=== PATIENT | female | born 1960 | race Caucasian/White ===

== ENCOUNTER 2023-12-17 10:03 | Emergency (ER) | payer MEDICARE, MEDICAID ==
[~2023-12-17] VITALS: Ht 180.3 cm; Wt 89.1 kg
[2023-12-17 11:42] LABS: BASOPHILS % (AUTO) 0.5 % (0-1); EOSINOPHILS # (AUTO) 0.1 X10'3 (0-0.9); EOSINOPHILS % (AUTO) 1.1 % (0-6); HEMATOCRIT 35.6 % (35.0-45.0); HEMOGLOBIN 11.6 g/dl (12.0-16.0); LYMPHOCYTES % (AUTO) 28.4 % (21-51); MEAN CORPUSCULAR HEMOGLOBIN 29.9 PG (27.0-31.0); MEAN CORPUSCULAR HGB CONC 32.5 g/dL (33.0-36.5); MEAN CORPUSCULAR VOLUME 92.2 FL (78-98); MEAN PLATELET VOLUME 7.5 FL (7.4-10.4); MONOCYTES # (AUTO) 0.3 X10'3 (0-0.9); NEUTROPHILS # (AUTO) 4.5 X10'3 (1.8-7.7); PLATELET COUNT 454 X10'3 (140-440); RED BLOOD COUNT 3.86 X10'6 (4.20-5.60); RED CELL DISTRIBUTION WIDTH 14.3 % (11.5-14.5); WHITE BLOOD COUNT 6.9 X10'3 (4.5-11.0)
[2023-12-17] MEDS: normal saline 1000ML IV soln IVB ONE (11:44)
[2023-12-17 11:50] LABS: ANION GAP 9 (8-16); BLOOD UREA NITROGEN 15 MG/DL (7-18); CHLORIDE 104 MMOL/L (99-107); GLUCOSE 188 MG/DL (70-104); POTASSIUM 3.8 MMOL/L (3.5-5.1); SODIUM 140 MMOL/L (135-145); TOTAL CARBON DIOXIDE 27.5 MMOL/L (24-32)
[2023-12-17 11:51] LABS: ALANINE AMINOTRANSFERASE 18 U/L (12-78); ALBUMIN 3.4 G/DL (3.4-5.0); ALBUMIN/GLOBULIN RATIO 0.9 (1.1-1.5); ALKALINE PHOSPHATASE 52 IU/L (46-116); ASPARTATE AMINO TRANSFERASE 15 U/L (10-37); BILIRUBIN,TOTAL 0.3 MG/DL (0.1-1.0); BUN/CREATININE RATIO 19.7 (10.0-20.0); CALCIUM 9.4 MG/DL (8.5-10.1); CREATININE 0.76 MG/DL (0.40-0.90); LIPASE 99 U/L (16-77); TOTAL PROTEIN 7.4 G/DL (6.4-8.2); eCRCL 87 ML/MIN; eGFR 77 ML/MIN
[2023-12-17] MEDS: mag hydrox/Alum hydrox/simeth 30ml oral suspension PO ONE (13:18)
[2023-12-17] MEDS: LIDOcaine 2% Viscous 15ml cup MM ONE (13:18)
[2023-12-17] MEDS: pantoprazole 40 MG vial IV ONE (13:19)
[2023-12-17] MEDS: ketorolac trometh 15mg/ml vial 15 MG/ML ML IM ONE (13:20)
[2023-12-17] MEDS ORDERED: OXYC-138 PO (13:49)
[2023-12-17] MEDS ORDERED: ONDA-243 PO (13:49)
[2023-12-17] MEDS: normal saline 1000ml 1,000 ML IV ONE (13:51)
[2023-12-17 14:27] LABS: BILIRUBIN,URINE NEGATIVE (Neg); CLARITY,URINE SLIGHTLY CLOUDY (Clear); COLOR,URINE YELLOW (Yellow); GLUCOSE, URINE NEGATIVE (Neg); KETONES,URINE NEGATIVE (Neg); LEUKOCYTE ESTERASE ,URINE NEGATIVE (Neg); NITRITES, URINE NEGATIVE (Neg); OCCULT BLOOD,URINE LARGE (Neg); PROTEIN,URINE TRACE mg/dl (Neg); UROBILINOGEN,URINE 0.2 E.U/dL (0.2-1.0)
[2023-12-17 14:29] LABS: UA COLLECTION TYPE CLN CATCH MIDSTREAM
[2023-12-17 14:37] LABS: BACTERIA,URINE FEW /HPF (Neg); FINE GRANULAR CAST 0-3 /LPF (NEGATIVE); HYALINE CASTS 0-3 /LPF (NEGATIVE); MUCUS STRANDS MANY /LPF (Neg); RBC,URINE 20-50 /HPF (0-2); SQUAMOUS EPITHELIAL CELL,UR FEW /LPF (FEW)
[2023-12-17 14:43] VITALS: BP 139/84; PULSE 62; RESP 17; TEMP 98.3; O2SAT 99
== END 2023-12-17 14:44 | disposition home or self-care (01) ==
LOC: ER 10:04
DX: K85.90 Acute pancreatitis without necrosis or infection, unspecified (principal); I10 Essential (primary) hypertension; E11.9 Type 2 diabetes mellitus without complications; E03.9 Hypothyroidism, unspecified; F17.210 Nicotine dependence, cigarettes, uncomplicated; F12.90 Cannabis use, unspecified, uncomplicated; Z88.0 Allergy status to penicillin; Z79.899 Other long term (current) drug therapy; Z90.710 Acquired absence of both cervix and uterus
CPT/HCPCS: 36415; 76700; 80053; 81001; 82948; 83690; 85025; 87088; 96361; 96372; 96374; 99285; J1885; J2470; J7030

== ENCOUNTER 2024-01-18 14:46 | Inpatient (IN) | payer MEDICARE, MEDICAID ==
[~2024-01-18] VITALS: Ht 180.3 cm; Wt 89.6 kg
[~2024-01-18 14:46] MED LIST: ONDA-243 PO; OXYC-138 PO
[2024-01-18 16:02] LABS: BASOPHILS % (AUTO) 0.5 % (0-1); EOSINOPHILS # (AUTO) 0.1 X10'3 (0-0.9); EOSINOPHILS % (AUTO) 1.6 % (0-6); HEMATOCRIT 34.5 % (35.0-45.0); HEMOGLOBIN 11.5 g/dl (12.0-16.0); LYMPHOCYTES # (AUTO) 1.9 X10'3 (1.1-4.8); MEAN CORPUSCULAR HEMOGLOBIN 30.9 PG (27.0-31.0); MEAN CORPUSCULAR HGB CONC 33.2 g/dL (33.0-36.5); MEAN PLATELET VOLUME 6.9 FL (7.4-10.4); MONOCYTES # (AUTO) 0.5 X10'3 (0-0.9); MONOCYTES % (AUTO) 5.9 % (2-12); NEUTROPHILS # (AUTO) 5.6 X10'3 (1.8-7.7); PLATELET COUNT 457 X10'3 (140-440); RED CELL DISTRIBUTION WIDTH 14.2 % (11.5-14.5); WHITE BLOOD COUNT 8.2 X10'3 (4.5-11.0)
[2024-01-18 16:12] LABS: APTT 26 SECONDS (22-32); PROTHROMBIN TIME 10.1 SECONDS (9.0-12.0)
[2024-01-18 16:23] LABS: ALANINE AMINOTRANSFERASE 20 U/L (12-78); ALBUMIN 3.4 G/DL (3.4-5.0); ALBUMIN/GLOBULIN RATIO 0.8 (1.1-1.5); ALKALINE PHOSPHATASE 67 IU/L (46-116); ANION GAP 8 (8-16); ASPARTATE AMINO TRANSFERASE 13 U/L (10-37); BILIRUBIN,TOTAL 0.3 MG/DL (0.1-1.0); BLOOD UREA NITROGEN 11 MG/DL (7-18); BUN/CREATININE RATIO 13.8 (10.0-20.0); CALCIUM 9.4 MG/DL (8.5-10.1); CHLORIDE 103 MMOL/L (99-107); GLUCOSE 182 MG/DL (70-104); LIPASE 97 U/L (16-77); POTASSIUM 4.5 MMOL/L (3.5-5.1); SODIUM 137 MMOL/L (135-145); TOTAL PROTEIN 7.6 G/DL (6.4-8.2); eCRCL 83 ML/MIN; eGFR 73 ML/MIN
[2024-01-18] MEDS: meperidine/PF 50mg/ml syringe IV ONE (18:47)
[2024-01-18] MEDS: ondansetron/PF 4mg/2ml inj IV ONE (18:59)
[2024-01-18] MEDS: normal saline 1000ML IV soln IVB ONE (19:06)
[2024-01-18] MEDS: HYDROmorphone 1 mg/ml syringe IV ONE (19:07)
[2024-01-18 19:13] LABS: ETHANOL < 10 MG/DL (<10); MAGNESIUM 1.8 MG/DL (1.5-2.4)
[2024-01-18 19:24] LABS: BILIRUBIN,URINE NEGATIVE (Neg); CLARITY,URINE CLEAR (Clear); COLOR,URINE YELLOW (Yellow); GLUCOSE, URINE NEGATIVE (Neg); KETONES,URINE NEGATIVE (Neg); LEUKOCYTE ESTERASE ,URINE NEGATIVE (Neg); NITRITES, URINE NEGATIVE (Neg); OCCULT BLOOD,URINE MODERATE (Neg); PROTEIN,URINE NEGATIVE (Neg); UROBILINOGEN,URINE 0.2 E.U/dL (0.2-1.0)
[2024-01-18 19:35] LABS: UA COLLECTION TYPE CLN CATCH MIDSTREAM
[2024-01-18 19:42] LABS: BACTERIA,URINE FEW /HPF (Neg); SQUAMOUS EPITHELIAL CELL,UR FEW /LPF (FEW); WBC,URINE 0-4 /HPF (0-4)
[2024-01-18 19:43] LABS: MUCUS STRANDS FEW /LPF (Neg); TRANSITIONAL EPI CELLS,URINE FEW /HPF
[2024-01-18] MEDS ORDERED: OXYC-138 PO (20:05)
[2024-01-18] MEDS ORDERED: METF-436 PO (20:05)
[2024-01-18] MEDS ORDERED: ONDA-243 PO (20:05)
[2024-01-18] MEDS ORDERED: LEVO150C4 PO (20:05)
[2024-01-18] MEDS ORDERED: ATOR80TA PO (20:05)
[2024-01-18] MEDS ORDERED: LISI5TAB22 PO (20:05)
[2024-01-18] MEDS ORDERED: FENO160T PO (20:05)
[2024-01-18] MEDS ORDERED: magnesium sulf-water 2g/50mL 50 ML IV PRN (20:30)
[2024-01-18] MEDS ORDERED: morphine 2 MG/ML inj. syringe IV PRN ×2 (20:30)
[2024-01-18] MEDS ORDERED: magnesium Cl slow-release 64mg tablet PO PRN (20:30)
[2024-01-18] MEDS ORDERED: ondansetron/PF 4mg/2ml inj IV PRN (20:30)
[2024-01-18] MEDS ORDERED: potassium Cl 40MEQ/1/2NS 520ml 520 ML IV PRN (20:30)
[2024-01-18] MEDS ORDERED: acetaminophen 325mg tablet PO PRN (20:30)
[2024-01-18] MEDS ORDERED: magnesium sulf-water 4G/100mL 100 ML IV PRN (20:30)
[2024-01-18] MEDS ORDERED: mag hydrox/Alum hydrox/simeth 30ml oral suspension PO PRN (20:30)
[2024-01-18] MEDS ORDERED: magnesium hydroxide 30ml (MOM) UD suspension PO PRN (20:30)
[2024-01-18] MEDS ORDERED: potassium Cl 20 mEq SR tablet PO PRN ×2 (20:30)
[2024-01-18] MEDS ORDERED: DEXTROSE 15 GM of carb/4 tabs (each vial/BOTTLE has 4 tablets) PO PRN ×2 (20:45)
[2024-01-18] MEDS ORDERED: glucagon, human recombinant 1mg kit SUBCUT PRN (20:45)
[2024-01-18] MEDS ORDERED: dextrose 50%-water 50ml dispensing syringe IV PRN ×2 (20:45)
[2024-01-18] MEDS: normal saline 1000ml 1,000 ML IV SCH (21:19)
[2024-01-18 21:40] LABS: MAGNESIUM 1.8 MG/DL (1.5-2.4)
[2024-01-18 22:10] VITALS: BP 176/82; PULSE 75; RESP 14; RESP 16; TEMP 97.5; O2SAT 100
[2024-01-18] MEDS: HYDROmorphone/PF 0.2 MG/ML SYRINGE IV PRN (23:20)
[2024-01-18] MEDS: hydrALAZINE 20mg/ml inj. IV ONE (23:21)
[2024-01-19] MEDS: acetaminophen 325mg tablet PO PRN (02:28)
[2024-01-19] MEDS: ringers solution, lacted 1,000 ML IV SCH (05:52)
[2024-01-19 06:00] VITALS: BP 129/69; PULSE 65; RESP 16; TEMP 97.6; O2SAT 97
[2024-01-19 06:06] LABS: BASOPHILS % (AUTO) 0.5 % (0-1); EOSINOPHILS # (AUTO) 0.1 X10'3 (0-0.9); EOSINOPHILS % (AUTO) 2.2 % (0-6); HEMOGLOBIN 10.1 g/dl (12.0-16.0); LYMPHOCYTES # (AUTO) 2.1 X10'3 (1.1-4.8); LYMPHOCYTES % (AUTO) 31.2 % (21-51); MEAN CORPUSCULAR HEMOGLOBIN 31.1 PG (27.0-31.0); MEAN CORPUSCULAR HGB CONC 33.6 g/dL (33.0-36.5); MEAN CORPUSCULAR VOLUME 92.4 FL (78-98); MEAN PLATELET VOLUME 6.7 FL (7.4-10.4); MONOCYTES # (AUTO) 0.4 X10'3 (0-0.9); MONOCYTES % (AUTO) 5.8 % (2-12); NEUTROPHILS % (AUTO) 60.3 % (42-75); PLATELET COUNT 387 X10'3 (140-440); RED BLOOD COUNT 3.24 X10'6 (4.20-5.60); RED CELL DISTRIBUTION WIDTH 13.9 % (11.5-14.5); WHITE BLOOD COUNT 6.7 X10'3 (4.5-11.0)
[2024-01-19 06:24] LABS: ALANINE AMINOTRANSFERASE 15 U/L (12-78); ALBUMIN 2.8 G/DL (3.4-5.0); ALBUMIN/GLOBULIN RATIO 0.8 (1.1-1.5); ALKALINE PHOSPHATASE 54 IU/L (46-116); ANION GAP 6 (8-16); ASPARTATE AMINO TRANSFERASE 12 U/L (10-37); BILIRUBIN,TOTAL 0.3 MG/DL (0.1-1.0); BLOOD UREA NITROGEN 10 MG/DL (7-18); BUN/CREATININE RATIO 13.2 (10.0-20.0); CALCIUM 8.3 MG/DL (8.5-10.1); CHLORIDE 107 MMOL/L (99-107); CHOL/HDL RATIO 3.1 (0.00-4.99); CHOLESTEROL 123 MG/DL (0-200); CREATININE 0.76 MG/DL (0.40-0.90); GLUCOSE 135 MG/DL (70-104); HDL CHOLESTEROL 40 MG/DL (35-60); LDL CHOLESTEROL 69 MG/DL (50-100); MAGNESIUM 1.7 MG/DL (1.5-2.4); POTASSIUM 3.6 MMOL/L (3.5-5.1); SODIUM 138 MMOL/L (135-145); TOTAL CARBON DIOXIDE 25.3 MMOL/L (24-32); TOTAL PROTEIN 6.2 G/DL (6.4-8.2); TRIGLYCERIDES 68 MG/DL (20-135); eCRCL 87 ML/MIN; eGFR 77 ML/MIN
[2024-01-19] MEDS: INSULIN LISPRO 100 UNIT/ML INSULN.PEN MULTI-DOSE SQ SCH (07:00)
[2024-01-19] MEDS: metoclopramide 10mg tablet PO SCH (07:34)
[2024-01-19] MEDS: docusate sod 100mg capsule PO SCH (07:34)
[2024-01-19] MEDS: levoTHYROXINE 75mcg tablet PO SCH (07:34)
[2024-01-19 07:35] VITALS: BP_SYST 129; PULSE 65
[2024-01-19] MEDS: atorvastatin 20mg tablet PO SCH (07:35)
[2024-01-19] MEDS: lisinopril 5mg tablet PO SCH (07:35)
[2024-01-19] MEDS: enoxaparin 40mg/0.4ml syringe SUBCUT SCH (07:36)
[2024-01-19] MEDS: insulin glargine (Lantus) pen - multi-dose SQ SCH (07:47)
[2024-01-19 08:00] VITALS: RESP 16; O2SAT 97
[2024-01-19] MEDS: K and/or MAG REPLACEMENT MC SCH (08:00)
[2024-01-19] MEDS: pantoprazole 40 MG vial IV SCH (08:50)
[2024-01-19] MEDS: FENOFIBRATE PO SCH (09:18)
[2024-01-19] MEDS ORDERED: PER5325T PO (14:02)
== END 2024-01-19 13:55 | disposition home or self-care (01) | DRG 73 ==
LOC: ER 14:47 → ED HOLD 20:44 → EDBEDREQ 21:31 → ORTHO 4S 22:05
PROVIDERS: ADMIT Internal Medicine Pulmonary Disease; ATTEND Family Medicine
DX: E11.43 Type 2 diabetes mellitus with diabetic autonomic (poly)neuropathy (principal); K85.80 Other acute pancreatitis without necrosis or infection; G82.20 Paraplegia, unspecified; L03.317 Cellulitis of buttock; Z85.72 Personal history of non-Hodgkin lymphomas; K31.84 Gastroparesis; J45.909 Unspecified asthma, uncomplicated; E03.9 Hypothyroidism, unspecified; G89.4 Chronic pain syndrome; E78.5 Hyperlipidemia, unspecified; I10 Essential (primary) hypertension; S31.829A Unspecified open wound of left buttock, initial encounter; S31.819A Unspecified open wound of right buttock, initial encounter; X58.XXXA Exposure to other specified factors, initial encounter; Y93.89 Activity, other specified; Y92.89 Other specified places as the place of occurrence of the external cause; Y99.8 Other external cause status; Z87.891 Personal history of nicotine dependence; Z99.3 Dependence on wheelchair; Z90.710 Acquired absence of both cervix and uterus; Z86.73 Personal history of transient ischemic attack (TIA), and cerebral infarction without residual deficits; Z88.0 Allergy status to penicillin; Z79.84 Long term (current) use of oral hypoglycemic drugs; Z79.899 Other long term (current) drug therapy; Z85.42 Personal history of malignant neoplasm of other parts of uterus; Z90.49 Acquired absence of other specified parts of digestive tract
CPT/HCPCS: 36415; 71045; 74176; 76700; 80053; 80061; 80320; 81001; 82948; 83036; 83615; 83690; 83735; 85025; 85610; 85730; 87081; 93005; 96374; 96375; 99285; G0378; J0360; J1171; J1650; J1815; J2405; J2470; J7030; J7120

== ENCOUNTER 2024-05-30 08:50 | Emergency (ER) | payer MEDICARE, MEDICAID ==
[~2024-05-30] VITALS: Ht 180.3 cm; Wt 92.5 kg
[~2024-05-30 08:50] MED LIST changes: +ATOR-429 PO; +FENO160T PO; +LEVO150C4 PO; +LISI5TAB22 PO; +METF-436 PO
[2024-05-30 09:37] LABS: BASOPHILS % (AUTO) 0.5 % (0-1); EOSINOPHILS # (AUTO) 0.1 X10'3 (0-0.9); EOSINOPHILS % (AUTO) 1.3 % (0-6); HEMATOCRIT 37.7 % (35.0-45.0); HEMOGLOBIN 12.4 g/dl (12.0-16.0); LYMPHOCYTES % (AUTO) 23.5 % (21-51); MEAN CORPUSCULAR HEMOGLOBIN 29.9 PG (27.0-31.0); MEAN CORPUSCULAR HGB CONC 32.8 g/dL (33.0-36.5); MEAN PLATELET VOLUME 6.5 FL (7.4-10.4); MONOCYTES # (AUTO) 0.5 X10'3 (0-0.9); MONOCYTES % (AUTO) 5.8 % (2-12); NEUTROPHILS # (AUTO) 5.9 X10'3 (1.8-7.7); NEUTROPHILS % (AUTO) 68.9 % (42-75); PLATELET COUNT 441 X10'3 (140-440); RED BLOOD COUNT 4.14 X10'6 (4.20-5.60); RED CELL DISTRIBUTION WIDTH 14.5 % (11.5-14.5); WHITE BLOOD COUNT 8.6 X10'3 (4.5-11.0)
[2024-05-30 09:54] LABS: ALANINE AMINOTRANSFERASE 20 U/L (12-78); ALBUMIN 3.5 G/DL (3.4-5.0); ALBUMIN/GLOBULIN RATIO 0.9 (1.1-1.5); ALKALINE PHOSPHATASE 73 IU/L (46-116); ANION GAP 11 (8-16); ASPARTATE AMINO TRANSFERASE 14 U/L (10-37); BILIRUBIN,TOTAL 0.3 MG/DL (0.1-1.0); BLOOD UREA NITROGEN 14 MG/DL (7-18); BUN/CREATININE RATIO 19.2 (10.0-20.0); CALCIUM 9.4 MG/DL (8.5-10.1); CHLORIDE 104 MMOL/L (99-107); CREATININE 0.73 MG/DL (0.40-0.90); GLUCOSE 127 MG/DL (70-104); LIPASE 297 U/L (16-77); SODIUM 138 MMOL/L (135-145); TOTAL CARBON DIOXIDE 23.5 MMOL/L (24-32); TOTAL PROTEIN 7.6 G/DL (6.4-8.2); eCRCL 89 ML/MIN; eGFR 81 ML/MIN
[2024-05-30] MEDS: proCHLORperazine 10 MG/2 ml inj IV STA (10:26)
[2024-05-30] MEDS: HYDROmorphone 1 mg/ml syringe IV STA (10:27)
[2024-05-30] MEDS: normal saline 1000ml 1,000 ML IV STA ×2 (10:27→12:00)
[2024-05-30] MEDS ORDERED: AMYL1CAP60 PO (11:40)
[2024-05-30] MEDS ORDERED: HYDR-3965 PO (11:47)
[2024-05-30 11:58] VITALS: BP 115/53; PULSE 61; RESP 14; TEMP 97.8; O2SAT 99
== END 2024-05-30 12:17 | disposition home or self-care (01) ==
LOC: ER 08:50
DX: K85.90 Acute pancreatitis without necrosis or infection, unspecified (principal); I10 Essential (primary) hypertension; E11.9 Type 2 diabetes mellitus without complications; E03.9 Hypothyroidism, unspecified; Z88.0 Allergy status to penicillin; Z90.710 Acquired absence of both cervix and uterus; Z98.890 Other specified postprocedural states
CPT/HCPCS: 36415; 80053; 82948; 83690; 85025; 96361; 96374; 96375; 99285; J0780; J1171; J7030

== ENCOUNTER 2024-08-24 12:36 | Outpatient (CLI) | payer MEDICARE, MEDICAID ==
[~2024-08-24 12:36] MED LIST changes: +AMYL1CAP60 PO; -LEVO150C4 PO; +LEVO150C5 PO
--- NOTE | 2024-08-24 14:02 | RADIOLOGY REPORT ---
Exam: US ULTRASOUND HEAD NECK Date: 08/24/2024 01:09 PM Clinical History: GENERALIZED ENLARGED LYMPH NODES Comparison: None Technique: Targeted sonographic evaluation of the soft tissues of the right neck was obtained utilizing grayscal e and color Doppler imaging. Findings/Impression: Multiple prominent lymph nodes with benign fatty hilum are visualized in the right neck with the larg est measuring 1.3 x 0.5 cm which is favored to be reactive.
== END 2024-08-24 23:59 | disposition home or self-care (01) ==
LOC: RAD 12:36
PROVIDERS: ATTEND Nurse Practitioner
DX: R59.1 Generalized enlarged lymph nodes (principal)
CPT/HCPCS: 76882